=== PATIENT | male | born 1980 | race Caucasian/White ===

== ENCOUNTER 2017-03-21 00:23 | Inpatient (IN) | payer MEDICAID ==
[~2017-03-21] VITALS: Ht 170.2 cm; Wt 131.5 kg
[2017-03-21] MEDS ORDERED: ACETAMINOPHEN 325MG TABLET PO ONE (01:30)
[2017-03-21 01:46] LABS: BASOPHILS % 0.7 % (0.0-2.0); EOSINOPHILS % 0.4 % (0.0-5.0); HEMATOCRIT. 38.6 % (42.0-52.0); HEMOGLOBIN. 12.3 g/dL (14.0-18.0); LYMPHOCYTES % 14.8 % (20.0-50.0); MEAN CORPUSCULAR HEMOGLOBIN 24.4 pg (28.0-32.0); MEAN CORPUSCULAR VOLUME 76.8 fL (80.0-94.0); MEAN PLATELET VOLUME 10.4 fl (7.4-10.4); NEUTROPHILS % 79.1 % (40.0-76.0); PLATELET 203 x1000/uL (130-400); RED BLOOD CELL COUNT 5.02 mill/uL (4.7-6.1); RED CELL DISTRIBUTION WIDTH 17.9 % (11.6-14.6)
[2017-03-21 01:54] LABS: CLARITY URINE CLEAR (CLEAR); COLOR URINE YELLOW (YELLOW); GLUCOSE URINE NEGATIVE (NEGATIVE); KETONES URINE 1+ (NEGATIVE); LEUKOCYTE ESTERASE URINE NEGATIVE (NEGATIVE); NITRITE URINE NEGATIVE (NEGATIVE); OCCULT BLOOD URINE NEGATIVE (NEGATIVE); PH URINE 5.5 (4.5-8.0); PROTEIN URINE 1+ (NEGATIVE); SPECIFIC GRAVITY URINE 1.017 (1.005-1.030)
[2017-03-21 01:54] LABS: CHLORIDE 106 mEq/L (98-107)
[2017-03-21] MEDS ORDERED: MORPHINE SULFATE 4 MG/ML CPJ (NOT FOR IM USE) IV STA ×2 (02:03→04:40)
[2017-03-21] MEDS ORDERED: SODIUM CHLORIDE 0.9% 1,000 ML IV ONE (02:03)
[2017-03-21 02:07] LABS: CARBON DIOXIDE 26 mEq/L (21-32)
[2017-03-21] MEDS ORDERED: POTASSIUM CHLORIDE 20MEQ TABLET SR PO ONE (02:15)
[2017-03-21] MEDS ORDERED: PIPERACILLIN/TAZ 3.375G PREMIX 50 ML IV SCH (05:45)
[2017-03-21 07:42] LABS: *AMPHETAMINES SCREEN URINE NEGATIVE (NEGATIVE); *BARBITURATES SCREEN URINE NEGATIVE (NEGATIVE); *BENZODIAZEPINES SCREEN URINE NEGATIVE (NEGATIVE); *COCAINE SCREEN URINE NEGATIVE (NEGATIVE); CANNABINOID URINE SCREEN NEGATIVE (NEGATIVE); METHADONE URINE SCREEN NEGATIVE (NEGATIVE); OPIATES URINE SCREEN NEGATIVE (NEGATIVE); PHENCYCLIDINE URINE SCREEN NEGATIVE (NEGATIVE)
[2017-03-21 09:04] VITALS: BP 172/95
[2017-03-21 10:34] VITALS: BP 172/95
[2017-03-21] MEDS ORDERED: ATEN50TA PO (10:56)
[2017-03-21] MEDS ORDERED: NA PHOS,M-B/NA PHOS,DI-BA ENEMA 118ML PR PRN (11:15)
[2017-03-21] MEDS ORDERED: IPRATROPIUM/ALBUTEROL 0.5-3(2.5)MG/3ML NEB INH PRN (11:15)
[2017-03-21] MEDS ORDERED: DIPHENHYDRAMINE 50MG/ML VIAL IV PRN (11:15)
[2017-03-21] MEDS ORDERED: MAGNESIUM/ALUMINUM HYDROXIDE/SIMETHICONE 30ML UDC PO PRN (11:15)
[2017-03-21] MEDS ORDERED: ONDANSETRON HCL 4MG/2ML VIAL IV PRN (11:15)
[2017-03-21] MEDS ORDERED: GUAIFENESIN 200MG/10ML SUGAR FREE UDC PO PRN (11:15)
[2017-03-21] MEDS ORDERED: ACETAMINOPHEN 650MG SUPP PR PRN (11:15)
[2017-03-21] MEDS ORDERED: DOCUSATE SODIUM 100MG CAPSULE PO PRN (11:15)
[2017-03-21] MEDS ORDERED: ACETAMINOPHEN 650MG/20.3ML UDC GT PRN (11:15)
[2017-03-21 12:00] VITALS: BP 158/80
[2017-03-21] MEDS: IPRATROPIUM/ALBUTEROL 0.5-3(2.5)MG/3ML NEB INH SCH ×2 (12:05→20:13)
[2017-03-21] MEDS: DEXT 5%/0.45% NACL 1000ML 1,000 ML IV SCH (12:30)
[2017-03-21] MEDS: ATENOLOL 50 MG TABLET PO SCH (12:31)
[2017-03-21] MEDS: HYDROCODONE/ACETAMINOPHEN 5/325MG TABLET PO PRN (12:33)
[2017-03-21] MEDS: ENOXAPARIN 40MG/0.4ML SYR SUBCUT SCH ×2 (12:34→21:12)
[2017-03-21] MEDS: CEFTRIAXONE 1 G PREMIX 50 ML IV SCH (13:20)
[2017-03-21] MEDS: SODIUM CHLORIDE 0.9% INJ 3ML FLUSH IVF SCH ×2 (14:00→21:10)
[2017-03-21] MEDS: AZITHROMYCIN 500 MG in DEXT 5% WATER 250 ML IV SCH (14:27)
[2017-03-21 14:54] LABS: CLARITY URINE CLEAR (CLEAR); COLOR URINE YELLOW (YELLOW); GLUCOSE URINE NEGATIVE (NEGATIVE); KETONES URINE TRACE (NEGATIVE); LEUKOCYTE ESTERASE URINE NEGATIVE (NEGATIVE); NITRITE URINE NEGATIVE (NEGATIVE); OCCULT BLOOD URINE NEGATIVE (NEGATIVE); PH URINE 6.5 (4.5-8.0); PROTEIN URINE TRACE (NEGATIVE); SPECIFIC GRAVITY URINE 1.012 (1.005-1.030)
[2017-03-21 15:10] LABS: *AMPHETAMINES SCREEN URINE NEGATIVE (NEGATIVE); *BARBITURATES SCREEN URINE NEGATIVE (NEGATIVE); *BENZODIAZEPINES SCREEN URINE NEGATIVE (NEGATIVE); *COCAINE SCREEN URINE NEGATIVE (NEGATIVE); CANNABINOID URINE SCREEN NEGATIVE (NEGATIVE); METHADONE URINE SCREEN NEGATIVE (NEGATIVE); OPIATES URINE SCREEN PRESUMTIVE POSITIVE (NEGATIVE); PHENCYCLIDINE URINE SCREEN NEGATIVE (NEGATIVE)
[2017-03-21 16:00] VITALS: BP 135/80
[2017-03-21 18:21] LABS: D-DIMER 1.09 mg/L FEU (<0.50); INR 1.1; PROTHROMBIN TIME 11.7 sec (9.4-11.6)
[2017-03-21 20:00] VITALS: BP 147/84
[2017-03-21] MEDS: ACETAMINOPHEN 325MG TABLET PO PRN (21:11)
[2017-03-22] VITALS: BP 121/68
[2017-03-22] MEDS: IPRATROPIUM/ALBUTEROL 0.5-3(2.5)MG/3ML NEB INH SCH ×4 (01:15→20:44)
[2017-03-22 04:00] VITALS: BP 108/57
[2017-03-22] MEDS: SODIUM CHLORIDE 0.9% INJ 3ML FLUSH IVF SCH ×3 (05:28→21:18)
[2017-03-22 06:55] LABS: BASOPHILS % 0.5 % (0.0-2.0); EOSINOPHILS % 0.5 % (0.0-5.0); HEMATOCRIT. 35.4 % (42.0-52.0); HEMOGLOBIN. 11.2 g/dL (14.0-18.0); LYMPHOCYTES % 12.5 % (20.0-50.0); MEAN CORPUSCULAR HEMOGLOBIN 24.8 pg (28.0-32.0); MEAN CORPUSCULAR VOLUME 78.7 fL (80.0-94.0); MONOCYTES % 6.9 % (2.0-8.0); NEUTROPHILS % 79.6 % (40.0-76.0); PLATELET 163 x1000/uL (130-400); RED CELL DISTRIBUTION WIDTH 18.1 % (11.6-14.6)
[2017-03-22 07:38] LABS: CHLORIDE 107 mEq/L (98-107)
[2017-03-22 08:00] VITALS: BP 155/81
[2017-03-22 08:08] LABS: CARBON DIOXIDE 22 mEq/L (21-32)
[2017-03-22] MEDS: ATENOLOL 50 MG TABLET PO SCH (08:21)
[2017-03-22] MEDS: ENOXAPARIN 40MG/0.4ML SYR SUBCUT SCH ×2 (08:22→20:44)
[2017-03-22] MEDS: DEXT 5%/0.45% NACL 1000ML 1,000 ML IV SCH ×3 (08:27→21:18)
[2017-03-22] MEDS ORDERED: COLCHICINE 0.6MG TABLET PO SCH (11:30)
[2017-03-22] MEDS: HYDROCODONE/ACETAMINOPHEN 5/325MG TABLET PO PRN (11:37)
[2017-03-22 12:15] VITALS: BP 120/69
[2017-03-22] MEDS: AZITHROMYCIN 500 MG in DEXT 5% WATER 250 ML IV SCH (12:45)
[2017-03-22] MEDS: CLONIDINE 0.1MG TABLET PO PRN (13:05)
[2017-03-22] MEDS: CEFTRIAXONE 1 G PREMIX 50 ML IV SCH (14:16)
[2017-03-22] MEDS: CLOTRIMAZOLE 1% CREAM 30GM TOP SCH ×2 (14:17→20:44)
[2017-03-22 16:00] VITALS: BP 126/63
[2017-03-22 20:00] VITALS: BP 133/67
[2017-03-23] VITALS: BP 125/64
[2017-03-23] MEDS: IPRATROPIUM/ALBUTEROL 0.5-3(2.5)MG/3ML NEB INH SCH ×3 (01:15→13:01)
[2017-03-23 04:00] VITALS: BP 135/72
[2017-03-23] MEDS: SODIUM CHLORIDE 0.9% INJ 3ML FLUSH IVF SCH ×2 (05:42→15:41)
[2017-03-23] MEDS: DEXT 5%/0.45% NACL 1000ML 1,000 ML IV SCH (05:42)
[2017-03-23 08:00] VITALS: BP 123/69
[2017-03-23] MEDS: ENOXAPARIN 40MG/0.4ML SYR SUBCUT SCH (09:22)
[2017-03-23] MEDS: ATENOLOL 50 MG TABLET PO SCH (09:23)
[2017-03-23] MEDS: CLOTRIMAZOLE 1% CREAM 30GM TOP SCH (09:23)
[2017-03-23] MEDS: AZITHROMYCIN 500 MG in DEXT 5% WATER 250 ML IV SCH (11:56)
[2017-03-23 12:00] VITALS: BP 160/91
[2017-03-23] MEDS: CLONIDINE 0.1MG TABLET PO PRN (14:20)
[2017-03-23] MEDS: CEFTRIAXONE 1 G PREMIX 50 ML IV SCH (14:20)
[2017-03-23] MEDS: ACETAMINOPHEN 325MG TABLET PO PRN (14:23)
[2017-03-23 15:52] VITALS: BP 136/79
[2017-03-23 16:28] VITALS: BP 136/79
[2017-03-24] MEDS ORDERED: AZITHROMYCIN 500 MG TABLET PO SCH (09:00)
== END 2017-03-23 17:55 | disposition home or self-care (01) | DRG 720 ==
LOC: ER 00:23 → CANRESERV 06:54 → ENRESERV 06:54 → 6WST 09:10
PROVIDERS: ADMIT Family Medicine; ATTEND Family Medicine
PROC: 5A09357 Assistance with Respiratory Ventilation, Less than 24 Consecutive Hours, Continuous Positive Airway Pressure (ICD-10-PCS; principal; 2017-03-21)
DX: A41.9 Sepsis, unspecified organism (principal); J96.00 Acute respiratory failure, unspecified whether with hypoxia or hypercapnia; E43 Unspecified severe protein-calorie malnutrition; J18.9 Pneumonia, unspecified organism; K76.0 Fatty (change of) liver, not elsewhere classified; Z68.42 Body mass index [BMI] 45.0-49.9, adult; E66.01 Morbid (severe) obesity due to excess calories; N18.9 Chronic kidney disease, unspecified; M10.9 Gout, unspecified; G47.33 Obstructive sleep apnea (adult) (pediatric); I12.9 Hypertensive chronic kidney disease with stage 1 through stage 4 chronic kidney disease, or unspecified chronic kidney disease; D64.9 Anemia, unspecified; F17.200 Nicotine dependence, unspecified, uncomplicated
CPT/HCPCS: 36415; 71010; 71250; 74176; 76700; 76705; 78580; 80053; 80305; 81001; 83605; 83690; 85025; 85379; 85610; 87040; 87086; 93005; 93970; 94640; 94660; 94664; 96365; 96375; 96376; 99285; G0482; J0456; J0696; J1650; J2270; J2543; J3490; J7030; J7060; J7620